=== PATIENT | female | born 1995 | race African-American/Black ===

== ENCOUNTER 2021-03-15 12:19 | Outpatient (CLI) | payer OTHER, SELFPAY ==
--- NOTE | ~2021-03-15 | XR_ITS ---
EXAMINATION: XR chest 2V EXAM DATE: 03/15/2021 12:41 INDICATION: Abnormal chest x-ray, recently diagnosed with pneumonia. History asthma. TECHNIQUE: Frontal and lateral projections of the chest obtained and reviewed. There is no prior katie dy for comparison. FINDINGS: The lungs are clear. There are no pleural effusions. The cardiomediastinal silhouette is within normal limits. There is no pneumothorax suspected. The bones and soft tissues are unremarkab le. IMPRESSION: Unremarkable chest x-ray exam. Reviewed, dictated and finalized at location A. F [employer]ER
== END 2021-03-15 12:20 | disposition home or self-care (01) ==
PROVIDERS: PCP Emergency Medicine; Visit Provider Emergency Medicine
DX: J45.909 Unspecified asthma, uncomplicated (principal)
CPT/HCPCS: 71046

== ENCOUNTER → 2021-12-06 01:25 | Outpatient (CLI) | payer BC, OTHER, SELFPAY ==
[2021-12-06 10:42] LABS: SARS-CoV-2 RNA PCR Negative
== END ==
PROVIDERS: PCP Emergency Medicine; Visit Provider Emergency Medicine
DX: J06.9 Acute upper respiratory infection, unspecified (principal); Z20.822 Contact with and (suspected) exposure to COVID-19
CPT/HCPCS: C9803; U0003; U0005

== ENCOUNTER 2022-02-01 14:23 | Outpatient (CLI) | payer OTHER, SELFPAY ==
[2022-02-01 15:13] LABS: Hematocrit 40.9 % (37.0-47.0); Hemoglobin 13.7 g/dL (12.0-15.0); Mean Corpuscular HGB Conc 33.5 g/dl (32-36); Mean Corpuscular Hemoglobin 29.4 pg (26-34); Mean Corpuscular Volume 87.8 fl (80-100); Mean Platelet Volume 10.7 fl (7.4-10.4); Platelet Count Result 327 k/mm3 (150-375); Red Blood Count 4.66 M/mm3 (4.2-5.4); Red Cell Distribution Width 12.5 % (11.5-14.5); White Blood Count 9.9 K/mm3 (4.5-10.0)
[2022-02-01 15:32] LABS: Iron 94 ug/dL (37-170)
[2022-02-01 15:34] LABS: Alanine Aminotransferase 22 U/L (6-35); Albumin Level 4.8 g/dL (3.5-5.1); Alkaline Phosphatase 48 U/L (38-126); Anion Gap 9 mmol/L (8-16); Aspartate Amino Transferase 27 U/L (14-36); Bilirubin,Total 0.7 mg/dL (0.2-1.3); Blood Urea Nitrogen 16 mg/dL (7-17); Calcium 9.5 mg/dL (8.4-10.2); Carbon Dioxide 24 mmol/L (22-30); Chloride 107 mmol/L (98-107); Cholesterol 225 mg/dL (0-200); Estimated Glomerular Filt Rate > 60; Glucose 93 mg/dL (65-110); HDL Direct 59 mg/dL; Potassium 4.1 mmol/L (3.4-5.0); Sodium 140 mmol/L (137-145); Triglycerides 42 mg/dL (<150)
[2022-02-01 15:41] LABS: Creatinine Urine 264.5 mg/dL
[2022-02-01 15:42] LABS: Percent Iron Saturation 26 % (20-50)
[2022-02-01 15:44] LABS: Appearance Urine Slightly Cloudy (Clear); Bilirubin Urine 1+ (Negative); Blood Urine Negative (Negative); Color Urine Yellow (Yellow); Glucose Urine UA Negative (Negative); Ketones Urine Negative (Negative); Leukocyte Esterase Ur Trace LEU/UL (NEGATIVE); Nitrate Urine Negative (Negative); Protein Urine Negative (Negative); Specific Grav Ur >= 1.030 (1.001-1.035); Urobilinogen Urine 0.2 mg/dL (<2.0); pH Urine 5.5 (5.0-9.0)
[2022-02-01 15:45] LABS: MALB Creatinine Ratio 6.7 mg/g (0-30); Microalbumin Urine Random 17.6 mg/L (0-16.7)
[2022-02-01 15:45] LABS: LDL Cholesterol Direct 118 mg/dL
[2022-02-01 15:49] LABS: Vitamin D 25 Hydroxy 35.2 ng/mL
[2022-02-01 15:51] LABS: Hemoglobin A1C 5.1 % (<5.7)
[2022-02-01 15:52] LABS: Bacteria Urine Trace /hpf; Mucus Urine Few /lpf; Squamous Epithelial Cell Urine Moderate /hpf (Few)
[2022-02-01 15:53] LABS: Add Urine Microscopic? YES
[2022-02-01 15:54] LABS: Free T4 Free Thyroxine 1.01 ng/mL (0.78-2.19)
[2022-02-01 16:10] LABS: SARS-CoV-2 RNA PCR Negative
== END 2022-02-01 14:24 | disposition home or self-care (01) ==
LOC: ANHLAB 14:25
PROVIDERS: PCP Emergency Medicine; Visit Provider Emergency Medicine
DX: J45.909 Unspecified asthma, uncomplicated (principal); R11.2 Nausea with vomiting, unspecified; Z20.822 Contact with and (suspected) exposure to COVID-19
CPT/HCPCS: 36415; 80053; 80061; 81001; 82043; 82306; 83036; 83540; 83550; 84439; 84443; 85027; U0003; U0005